=== PATIENT | male | born 1945 | race Caucasian/White ===

== ENCOUNTER 2024-03-31 15:04 | Inpatient (IN) ==
--- NOTE | 2024-03-31 10:38 | History & Physical Report ---
Date of Service March 31, 2024 Assessment & Plan (1) Exertional dyspnea: Plan: Progressive limiting dyspnea leading to an outpatient stress test. Patient had hypotensive response shortly after starting the test and echo with concern for LV dilation and septal dyskinesis Admitted to PCU. Pending cardiac catheterization today Patient has not had dyspnea or adrenal symptoms at rest. He is chest pain- free breathing normally and feels well at time of bedside assessment precath Aspirin daily continued. Further antiplatelet/beta-sumit recommendations pending catheterization evaluation Baseline EKG, CBC, CMP, coags, troponin pending - Last echo 01/2024: Normal LV size and function, no regional abnormalities. EF 60%. Mild LVH. Grade 1 diastolic dysfunction of the left ventricle. Moderately dilated RV with normal systolic function. Moderately dilated RV. 4.1 cm ascending aortic dilation index 1.8. Mild to moderate posterior and posterior lateral pericardial effusion without tamponade. Mild MR. Trace to mild TR. -Catheterization did not show significant culprit ischemic disease, L to moderate nonobstructive coronary disease was noted. On ultrasound? Some enhancement of the pericardium raising concern for possible calcific pericar ditis/restrictive pericarditis. CT shows a mild to moderate effusion did not appear amenable to diagnostic tap on initial evaluation CRP is not elevated, and has no pain suggestive of acute pericarditis. Cardiology following, appreciate recommendations (2) Hypertension: Plan: Continue lisinopril, CCB. Visional recommendations pending cath evaluation (3) Hyperlipidemia: Plan: Atorvastatin continued. Patient is on 20 mg at baseline. Last lipid profile 08/2023: LDL 27, low, HDL 27, low, cholesterol 109, triglycerides 276. Fasting repeat screen scheduled for the morning. 20 mg atorvastatin continued, dose increase of atorvastatin to 40-80 mg deferred pending repeat lipid profile and due to significantly suppressed LDL in the past (4) History of bilateral knee replacement: Plan: Noted (5) Former tobacco use: Plan: No recent use, no patch required (6) Pericardial effusion: Plan DVT prophylaxis: Lovenox CODE STATUS: Full code Diet: N.p.o. 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. Discussed with [facility] cardiology Dr. Stroudt by phone, patient was brought in for a stress test for 8 months of lower extremity edema and exertional dyspnea. He had only been able to walk about 300 feet before having limiting dyspnea, although no chest pain/chest pressure. Was originally going to order a DSE however patient that he could tolerate a treadmill stress test which was performed as outpatient. This was aborted after near collapse early on in the test, echo showed a dilated LV and dyskinetic septum and patient had a hypotensive response which after a small amount of fluid improved over time and patient is 155/77 at time of hospitalist admitting assessment. Due to progressive limiting dyspnea, hypotensive response and findings on echo he was recommended for cardiac catheterization Kendall is seen at the bedside precath. He reports that at time of hospitalist assessment he is chest pain-free and has no shortness of breath, difficulty breathing, lightheadedness, dizziness. He endorses that over the last year he has had a gradually progressive limiting exertional dyspnea which occurs after less and less ambulation and can now only walk a couple of 100 feet before having to stop due to severe dyspnea. He reports he has not noticed any chest pain or chest pressure associated with this. He thinks he may have had some type of heart attack in the past but has never had a cath and has never had stents. He denies any past history of heart failure. He denies a history of kidney disease, diabetes. Does have elevated cholesterol for which he takes atorvastatin and hypertension for which she takes lisinopril. He takes his daily medications in the evening and last took these last night. He is not short of breath at rest, and has not noticed any orthopnea. He has noticed some swelling around his ankles over the past year. He is a former smoker no use in many years. Infrequent once or twice a month beer use, no daily/regular alcohol use. No recreational drug use. No known drug allergies. Full code. Allergies Allergy/AdvReac Type Severity Reaction Status Date / Time Iodinated Contrast Media Allergy Hives Verified 03/31/24 14:48 Home Medications Medication Instructions Recorded Confirmed Type ascorbic acid (vitamin C) 1 cap PO DAILY 03/31/24 03/31/24 History aspirin 81 mg capsule,delayed 81 mg PO DAILY 03/31/24 03/31/24 History release atorvastatin 20 mg tablet 20 mg PO DAILY 09/26/24 09/26/24 History lisinopril 30 mg tablet 30 mg PO DAILY 03/31/24 03/31/24 History nifedipine 60 mg tablet,extended 60 mg PO DAILY 03/31/24 03/31/24 History release 24 hr omega-3 fatty acids 1,000 mg PO DAILY 03/31/24 03/31/24 History Past Med/Surg History Problem List (Updated 03/31/24 @ 20:46 by Woody Nino MD) Pericardial effusion Hyperlipidemia Hypertension Exertional dyspnea Medical History Former tobacco use Surgical History (Updated 03/31/24 @ 10:37 by Woody Nino MD) History of bilateral knee replacement Social History Smoking Status: Never smoker Hx Alcohol Use: No Hx Substance Use: No Preferred Language: Lithuanian Communication Ability: Effective Leg Assembler Required: No Beliefs That Will Affect Care: None Current Living Situation: Alone Feels Safe at Home: Yes Assistive Devices: None Physical Exam Physical Exam: General: A&Ox3. NAD. Cooperative. HEENT: Atraumatic, normocephalic. Vision and hearing grossly intact. Pupils equal and reactive to light Pulm: CTAB A&P. -wheezes, -rales, -rhonchi. Symmetrical chest rise. No increased work of breathing. No respiratory distress. Cardiac: RRR, -mrg. Radial pulses intact and symmetrical. Trace JVD about 1 cm above the clavicle without significant HJR Abdominal: Nontender, nondistended, soft. BS present. Extremities: 1+ ankle edema bilaterally. Sensation soft touch intact in hands and feet. Moves all extremities equally Code Status & VTE Plan VTE Prophylaxis Plan VTE Prophylaxis will be ordered: Yes PG Care Time/CCT Total # of Minutes Spent Total Time Spent with Patient: Total time spent is greater than 50% in coordination of care (as documented) at patient's floor/unit and/or counseling patient: Coding Level of Care Code 12222 INT INP/OBS CARE 3/75MIN Diagnoses Exertional dyspnea R06.09 Hypertension I10 Hyperlipidemia E78.5 History of bilateral knee replacement Z96.653 Former tobacco use Z87.891 Pericardial effusion I31.39
[2024-03-31 11:41] LABS: Basophils # (auto) 0.09 K/uL (0.00-0.20); Basophils % (auto) 1.3 %; Eosinophils # (auto) 0.17 K/uL (0.00-0.50); Eosinophils % (auto) 2.4 %; Hematocrit (blood only) 42.3 % (42.0-52.0); Hemoglobin 14.7 g/dl (14.0-18.0); Immature Granulocytes # (auto) 0.02 K/uL (0.01-0.20); Immature Granulocytes % (auto) 0.3 %; Lymphocytes % (auto) 45.6 %; Mean Corpuscular Hemoglobin 30.8 pg (25.0-34.0); Mean Corpuscular Hgb Conc 34.8 g/dL (32.0-36.0); Mean Corpuscular Volume 88.7 fL (80.0-100.0); Mean Platelet Volume 9.8 fL (9.4-12.4); Monocytes # (auto) 0.59 K/uL (0.11-0.59); Monocytes % (auto) 8.4 %; Neutrophils # (auto) 2.94 K/uL (1.40-6.50); Platelet Count 217 K/uL (130-400); RDW Coefficient of Variation 12.7 % (11.5-14.5); RDW Standard Deviation 41.6 fL (36.4-46.3); Red Blood Count 4.77 M/uL (4.70-6.10); White Blood Count 7.01 K/ul (4.8-10.8)
[2024-03-31 11:52] LABS: Alanine Aminotransferase 22 U/L (7-52); Albumin Globulin Ratio 1.1 (0.9-2); Albumin Level 4.3 gm/dl (3.4-5.0); Alkaline Phosphatase 113 U/L (34-104); Anion Gap 9 (3-11); Aspartate Aminotransferase 27 U/L (13-39); BUN Creatinine Ratio 20.5 (10-20); Bilirubin,Total 0.5 mg/dl (0.2-1.0); Blood Urea Nitrogen 16 mg/dl (6-23); Calcium 9.3 mg/dl (8.6-10.3); Carbon Dioxide 24 mmol/L (21-32); Chloride 105 mmol/L (98-107); Creatinine Clr Calc Pharmacy 87.5 ml/min; Est GFR (African American) 98.8 ml/min; Est GFR (Non-African American) 85.3 ml/min; Globulin 3.9 gm/dl (2.5-4.0); Glucose 108 mg/dl (70-99(Fasting)); Potassium 3.8 mmol/L (3.5-5.1); Sodium 138 mmol/L (136-145); Total Protein 8.2 gm/dl (6.0-8.3)
[2024-03-31 11:57] LABS: Troponin I High Sensitivity 2.6 pg/ml (0-20)
--- NOTE | 2024-03-31 12:05 | Pre Anesthesia Assessment ---
Date of Service March 31, 2024 Pre Sedation Assessment Vital Signs Pulse Resp BP Pulse Ox O2 Del Method 03/31/24 10:31 82 18 155/77 H 95 Room Air Cardiovascular + regular rate Respiratory + respiratory effort normal Pre-Sedation Airway Assessment Smoking Status: Former smoker Hx Sleep Apnea: No Hx Difficult Intubation: No Short, Thick Neck: No Thyromental Distance: > or= 3.5 Finger Breadths Oral Cavity: + WNL Mallampati Class: III ASA: ASA3 NPO Status Date of Last Intake of Fluids: 03/31/24 Time of Last Intake of Fluids: 08:00 Date of Last Intake of Solid Food: 03/30/24 Time of Last Intake of Solid Foods: 19:00 Procedure Planning Contraindications for Sedation: none Current Medications Reviewed: Yes Notes The planned sedation has been discussed with the patient. Informed Consent was obtained. I have identified the patient, determined the appropriateness of sedation and have assessed the patient immediately prior to the procedure. All medicine(s) and interventions are by my order.
[2024-03-31 12:07] LABS: Partial Thromboplastin Ratio 1.1; Partial Thromboplastin Time 29 Seconds (21-31); Prothrombin Time 11.3 Seconds (9.0-12.0); Thyroid Stimulating Hormone 4.173 uIu/ml (0.300-4.500)
--- NOTE | 2024-03-31 14:02 | Post Anesthesia Assessment ---
Date of Service March 31, 2024 Post Sedation Assessment Vital Signs Pulse Resp BP Pulse Ox O2 Del Method 03/31/24 10:31 82 18 155/77 H 95 Room Air Recovery Score Activity: Moves 4 extremities Respiration: Deep Breath/Cough Circulation: +/-20% PreAnes Value Consciousness: Fully Awake Oxygen Saturation: O2 needed for >90% Discharge Sedation Level of Care: Fast Track Phase II Post Sedation Plan On clinical assessment, the patient appears to have tolerated the sedation without complications. Patient is recovering as anticipated. Patient will continue to be monitored by nursing and may be discharged when se dation discharge criteria are met per below protocol. Upon Completions of procedure up to 15 minutes continue every 5 minute vital signs and the P.A.R. score; then discharge to a Phase I or Fast Track to Phase II per the following guidelines: * Discharge Patient to appropriate Phase II area if PAR is 8 or greater or return to pre- procedure baseline. The post - procedure orders will be as directed. * If PAR score is less than 8 or not return to pre-procedure baseline then patient will follow Phase I monitoring till PAR is reached for Phase II. The Phase I may be done in procedure room or may call to secure a Phase I area. * If naloxone or flumazenil are used for reversal, hold in Phase I for continued monitoring from when last reversal dose was given for a minimum of 60 minutes or longer pending the nurse and/or physician discretion of patient condition before discharge to Phase II. Please call the Sedation Physician to re-evaluate and complete post-note for discharge to Phase II area. Do NOT discharge from procedure sedation or Phase 1 until post- sedation evaluation note is complete by procedure /sedation MD Sedation Discharge Instructions to be given to the patient at discharge to home.
[2024-03-31 14:04] LABS: iSTAT Arterial Blood Gas HCO3 22 meg/L (19-24); iSTAT Arterial Blood Gas pCO2 36 mmHg (35-46); iSTAT Arterial Blood Gas pO2 71 mmHg (80-95); iSTAT Carbon Dioxide 23 mmol/L (24-31); iSTAT Hematocrit 43 % (42-52); iSTAT Hemoglobin 14.6 g/dl (14.0-18.0); iSTAT Potassium 3.8 mmol/L (3.3-5.0); iSTAT Sodium 142 mmol/L (135-144)
--- NOTE | 2024-03-31 14:10 | Cardiac Catheterization ---
[facility] Data: Chief Of Party Cardiac Status Clinical evaluation leading to the procedure CAD Presenation: Positive Stress Test Diagnostic Physicians Name: Marke Alaniz MD Closure Device Recommendations: Medical Therapy and/or Counseling Cardiac Cath Procedure Full Procedure Date March 31, 2024 Pre-Procedure Diagnosis Pre-Procedure Diagnosis: Positive Stress Test AUC Score AUC Score: 7 Post-Procedure Diagnosis Post-Procedure Diagnosis: Moderate CAD Procedure(s) Performed Procedure(s) Performed: Coronary Angiography, Left Heart Cath, Right Heart Cath, Ultrasound Guided Vascular Access and IVUS Emergency Doctor Marek Alaniz MD Roll Weigher(s) Brant Estimated Blood Loss Estimated Blood Loss: 15 Medication(s) Medication(s): Fentanyl, Heparin, Lidocaine 1%, Nicardipine, Nitroglycerin and Versed Summary of Findings Indication: Abnormal stress test Access: 6 Fr right radial artery, 6 Fr right common femoral vein under ultrasound guidance Catheters: [place], diagnostic JL 3.5, pigtail, Egan Findings: LM -large caliber vessel, no significant disease LAD -large caliber, mild proximal disease up to 30% across takeoff of large D1. Remainder of LAD without significant disease and extends to apex. Large D1 without significant disease. Circumflex -large caliber vessel, no significant disease RCA -dominant, large caliber vessel, proximal luminal irregularities but no other significant disease. RA 7 RV 26/10 PA 29/16 (22) PAWP 13 LV 13 PaSat 69% AoSat 94% Herman CO/CI 6.4/3.0 IVUS of proximal LAD Left main cannulated with EBU 3.5 guide BMW wire placed into distal LAD Roman IVUS catheter placed into mid LAD. Pullback revealed focal area of circumferential calcified plaque just after takeoff of diagonal up to 40%. No significant ostial LAD or left main disease. Arterial Closure: TR band, CFV Mynx Summary: 1. Mild to moderate nonobstructive coronary artery disease -40% proximal to mid LAD disease by IVUS 2. Normal left-sided filling pressures. 3. Borderline right-sided filling pressures. 4. Normal pulmonary artery pressures. 5. Preserved cardiac output. Recommendations: No acute or high risk CAD to explain patient's recent symptoms and abnormal stress test. Continued ASCVD risk factor modification per Dr. Melendez Hemodynamics Rest Ao:: 121/79/119 Final Ao: 105/58/79 LV: 124/10 Recommendations Recommendations: Medical Therapy and/or Counseling Specimens Specimens: None Radiation Exposure (mGy) 2772 Contrast (mls) 116 Anesthesia Moderate 2243-1088 Procedural Complication(s) None Disposition PCU I attest to the content of the Intraoperative Record and any orders documented therein. Any exceptions are noted below. [facility] Card Cath Procedure Codes Cardiac Catheterization Procedure 1: Cardiovascular Cath Procedures: 41058 Coronaries & LHC (+/-LV) & RHC Therapeutic Services & Ancillary Procedure 1: Cardiovascular Tx and Anc Procedures: 23665 IV Ultrasound (Coronary or Graft) Procedure 2: Cardiovascular Tx and Anc Procedures: 27981 Ultrasonic Guidance Vascular Access Moderate Sedation Procedure 1: Sedation/Anesthesia: 36735 Mod Sedation by the same physician;Init15 Min Child Age 5 & Up Procedure 2: Sedation/Anesthesia: 91695 Mod Sedation by the same physician; Ea [id number] Minutes PG Care Time/CCT Total # of Minutes Spent Total Time Spent with Patient: Total time spent is greater than 50% in coordination of care (as documented) at patient's floor/unit and/or counseling patient:
[2024-03-31] MEDS ORDERED: ACETAMINOPHEN 325 MG TAB PO PRN (15:26)
[2024-03-31] MEDS ORDERED: NITROGLYCERIN SL 0.4 MG/TAB TAB SL PRN (15:26)
[2024-03-31 15:52] LABS: iSTAT Arterial Blood Gas HCO3 24 meg/L (19-24); iSTAT Arterial Blood Gas pCO2 41 mmHg (35-46); iSTAT Arterial Blood Gas pH 7.37 (7.35-7.45); iSTAT Arterial Blood Gas pO2 37 mmHg (80-95); iSTAT Carbon Dioxide 25 mmol/L (24-31); iSTAT Hematocrit 44 % (42-52); iSTAT Potassium 3.8 mmol/L (3.3-5.0); iSTAT Sodium 143 mmol/L (135-144)
[2024-03-31 16:11] LABS: C Reactive Protein < 0.50 mg/dl (0-0.5)
[2024-03-31] MEDS: LIDOCAINE 1% LOCAL 20 ML VIAL ONE (17:34)
[2024-03-31] MEDS: diphenhydrAMINE 50 MG/ML VIAL ONE (17:34)
--- NOTE | 2024-03-31 19:24 | CT Scan Report ---
Exam(s): CT CHEST Without Contrast EXAM: CT Chest Without Intravenous Contrast CLINICAL HISTORY: Reason for exam: dyspnea, ?pericardial calcificaiton. TECHNIQUE: Axial computed tomography images of the chest without intravenous contrast. CTDI is 23.01 mGy and DLP is 742.89 mGy-cm. Automated exposure control was utilized for the study. A dose lowering technique was utilized adhering to the principles of ALARA. COMPARISON: No relevant prior studies available. FINDINGS: Lungs: Discoid atelectasis seen in the lung bases. No mass. Pleural space: Unremarkable. No pneumothorax. No significant effusion. Heart: Mild to moderate pericardial effusion. No pericardial calcification. Moderate coronary vascular calcifications are seen. No cardiomegaly. Bones/joints: Unremarkable. No acute fracture. No dislocation. Soft tissues: Unremarkable. Vasculature: Ascending aorta is ptotic, measuring 1.3 cm in diameter. Lymph nodes: Unremarkable. No enlarged lymph nodes. IMPRESSION: 1. Mild to moderate pericardial effusion. 2. Ectatic ascending aorta. Electronically signed by: Silvano Vera MD 03/31/24 19:23 PM
[2024-03-31] MEDS: ATORVASTATIN 20 MG TAB PO SCH (20:31)
[2024-03-31] MEDS: NIFEdipine EXTENDED REL 30 MG TABCR PO SCH (20:31)
[2024-03-31] MEDS: OMEGA-3 (PURIFIED FISH OIL) 1 GM CAP PO SCH (20:31)
[2024-03-31] MEDS: lisinopril 10 MG TAB PO SCH (20:31)
[2024-03-31 22:34] VITALS: RESP 18
[2024-04-01 03:23] VITALS: O2SAT 92
[2024-04-01 06:24] LABS: Basophils # (auto) 0.08 K/uL (0.00-0.20); Basophils % (auto) 0.9 %; Eosinophils # (auto) 0.26 K/uL (0.00-0.50); Eosinophils % (auto) 2.9 %; Hematocrit (blood only) 40.3 % (42.0-52.0); Immature Granulocytes # (auto) 0.03 K/uL (0.01-0.20); Immature Granulocytes % (auto) 0.3 %; Lymphocytes # (auto) 3.71 K/uL (1.20-3.40); Lymphocytes % (auto) 41.6 %; Mean Corpuscular Hemoglobin 30.8 pg (25.0-34.0); Mean Corpuscular Hgb Conc 34.7 g/dL (32.0-36.0); Mean Corpuscular Volume 88.8 fL (80.0-100.0); Mean Platelet Volume 9.9 fL (9.4-12.4); Monocytes # (auto) 0.91 K/uL (0.11-0.59); Monocytes % (auto) 10.2 %; Neutrophils # (auto) 3.93 K/uL (1.40-6.50); Neutrophils % (auto) 44.1 %; Platelet Count 214 K/uL (130-400); RDW Coefficient of Variation 12.7 % (11.5-14.5); RDW Standard Deviation 41.1 fL (36.4-46.3); Red Blood Count 4.54 M/uL (4.70-6.10); White Blood Count 8.92 K/ul (4.8-10.8)
[2024-04-01 06:41] LABS: BUN Creatinine Ratio 17.9 (10-20); Chol HDL Ratio 3.4 (0-5); Creatinine Clr Calc Pharmacy 81.4 ml/min; Est GFR (African American) 95.8 ml/min; Est GFR (Non-African American) 82.7 ml/min; Potassium 3.7 mmol/L (3.5-5.1)
[2024-04-01 07:21] VITALS: BP 124/64; TEMP 98.2
--- NOTE | 2024-04-01 08:55 | Cardiology Progress Note ---
Date of Service April 01, 2024 Assessment & Plan (1) Exertional dyspnea: (2) Pericardial effusion: Plan Mr. Conner's catheterization did not demonstrate obstructive CAD or abnormal pressures. He has a 40% lesion in his LAD. He is appropriately on aspirin and statin. He does note some edema in his lower extremities at times but his bnp was normal and cath pressures were normal ruling out heart failure as a source of his dyspnea and swelling. He does have a moderate pericardial effusion found in January, no evidence of tamponade and not amenable to pericardiocentesis. He notes a mild cold a few weeks ago but otherwise has not had any significant viral infections. His CT did not demonstrate pulmonary disease. I did ask nursing to walk him in the halls with a pulse ox and did not have any desaturation with this. His pulse ox runs on the low side of normal. At this point, no obvious cardiac source of his dyspnea has been discovered. A referral to pulmonology on an outpatient basis could be considered. Cardiology will sign off, please let us know if you have any further questions. Admission and Anticipated Discharge Date Admission Date: March 31, 2024 Subjective Mr. Conner feels well this morning, eating breakfast at the time of my visit. He denies any shortness of breath or chest pain at rest. His dyspnea has been ongoing for about 3 months. Heart rate on the monitor has been largely SR although he had an episode around bedtime of sinus tachycardia with rates in the 130s. Review of Systems Review of Systems: All systems reviewed & are unremarkable except as noted in HPI & below Physical Exam Constitutional: WD/WN, vitals as above Respiratory: normal respiratory effort, lungs clear to auscultation Cardiovascular: Rate/Rhythm: regular rate and regular rhythm Heart Sounds: + murmur (2/6 rusb systolic) Extremities: no edema Skin: no rashes, warm and dry Neurologic: moves all extremities and awake Psychiatric: A+Ox3, euthymic affect Results & Data Vital Signs (Past 12 Hours) Vital Signs Temp Pulse Pulse Resp BP Pulse Ox O2 Del Method 04/01/24 07:25 84 04/01/24 07:20 36.8 C 70 18 124/64 92 Room Air 04/01/24 03:22 37.0 C 73 18 105/63 92 Room Air 03/31/24 23:11 Room Air 09/26/24 22:33 36.9 C 82 18 136/74 94 Room Air 03/31/24 21:51 82
[2024-04-01] MEDS: ASPIRIN 81 MG ECTAB PO SCH (08:56)
[2024-04-01] MEDS: ENOXAPARIN INJ 40 MG/0.4 ML SYR SQ SCH (08:57)
--- NOTE | 2024-04-01 10:55 | Discharge Summary ---
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 Discussed with [facility] cardiology Dr. Charles by phone, patient was brought in for a stress test for 8 months of lower extremity edema and exertional dyspnea. He had only been able to walk about 300 feet before having limiting dyspnea, although no chest pain/chest pressure. Was originally going to order a DSE however patient that he could tolerate a treadmill stress test which was performed as outpatient. This was aborted after near collapse early on in the test, echo showed a dilated LV and dyskinetic septum and patient had a hypotensive response which after a small amount of fluid improved over time and patient is 155/77 at time of hospitalist admitting assessment. Due to progressive limiting dyspnea, hypotensive response and findings on echo he was recommended for cardiac catheterization Kendall is seen at the bedside precath. He reports that at time of hospitalist assessment he is chest pain-free and has no shortness of breath, difficulty breathing, lightheadedness, dizziness. He endorses that over the last year he has had a gradually progressive limiting exertional dyspnea which occurs after less and less ambulation and can now only walk a couple of 100 feet before having to stop due to severe dyspnea. He reports he has not noticed any chest pain or chest pressure associated with this. He thinks he may have had some type of heart attack in the past but has never had a cath and has never had stents. He denies any past history of heart failure. He denies a history of kidney disease, diabetes. Does have elevated cholesterol for which he takes atorvastatin and hypertension for which she takes lisinopril. He takes his daily medications in the evening and last took these last night. He is not short of breath at rest, and has not noticed any orthopnea. He has noticed some swelling around his ankles over the past year. He is a former smoker no use in many years. Infrequent once or twice a month beer use, no daily/regular alcohol use. No recreational drug use. No known drug allergies. Full code. Admission Exam (Per Admitting) Constitutional The patient is awake, alert and oriented 3, well developed and well nourished, normocephalic and atraumatic, lying in bed and in no acute distress. HEENT--PERRL, EOMI, mucous membranes and oropharynx mildly dry Neck--supple. No JVD. No bruits. Thyroid normal, trachea midline, no adenopathy. Heart--normal S1 and S2. No murmurs, rubs or gallops. Lungs--clear bilaterally, no respiratory distress, no accessory muscle use. Abdomen--normal bowel sounds and soft. Extremities--no cyanosis or clubbing. No edema. Dermatologic--normal skin turgor, normal color, no abnormal lymph nodes, no rash. Neurologic--cranial nerves II through XII grossly intact. Rheumatologic--normal range of motion. Psychiatric--normal affect. Discharge Data Procedures Performed Operation Date: 03/31/24 10:30 Actual Procedures p Cath, Right and Left Heart - Marek Alaniz MD s Cineradiography w/Routine Exam - Marek Alaniz MD Hospital Course (1) Exertional dyspnea: Progressive limiting dyspnea leading to an outpatient stress test. Patient had hypotensive response shortly after starting the test and echo with concern for LV dilation and septal dyskinesis Admitted to PCU. Pending cardiac catheterization today Patient has not had dyspnea or adrenal symptoms at rest. He is chest pain- free breathing normally and feels well at time of bedside assessment precath Aspirin daily continued. Further antiplatelet/beta-sumit recommendations pending catheterization evaluation Baseline EKG, CBC, CMP, coags, troponin pending - Last echo 01/2024: Normal LV size and function, no regional abnormalities. EF 60%. Mild LVH. Grade 1 diastolic dysfunction of the left ventricle. Moderately dilated RV with normal systolic function. Moderately dilated RV. 4.1 cm ascending aortic dilation index 1.8. Mild to moderate posterior and posterior lateral pericardial effusion without tamponade. Mild MR. Trace to mild TR. -Catheterization did not show significant culprit ischemic disease, L to moderate nonobstructive coronary disease was noted. On ultrasound? Some enhancement of the pericardium raising concern for possible calcific pericarditis/restrictive pericarditis. CT shows a mild to moderate effusion did not appear amenable to diagnostic tap on initial evaluation CRP is not elevated, and has no pain suggestive of acute pericarditis. Cardiology following, appreciate recommendations -Cardiology determined patient is on appropriate medications -Will have patient follow up with Pulmonology for outpatient pulmonary function test (2) Hypertension: Continue lisinopril, CCB. Visional recommendations pending cath evaluation (3) Hyperlipidemia: Atorvastatin continued. Patient is on 20 mg at baseline. Last lipid profile 08/2023: LDL 27, low, HDL 27, low, cholesterol 109, triglycerides 276. Fasting repeat screen scheduled for the morning. 20 mg atorvastatin continued, dose increase of atorvastatin to 40-80 mg deferred pending repeat lipid profile and due to significantly suppressed LDL in the past (4) History of bilateral knee replacement: Noted (5) Former tobacco use: No recent use, no patch required (6) Pericardial effusion: Plan DVT prophylaxis: Lovenox CODE STATUS: Full code Diet: N.p.o. pending cardiac cath, then may progress to heart healthy Disposition: PCU Coding Level of Care Code 39638 INP/OBS DISCH >30 MIN Diagnoses Exertional dyspnea R06.09 Hypertension I10 Hyperlipidemia E78.5 History of bilateral knee replacement Z96.653 Former tobacco use Z87.891 Pericardial effusion I31.39 Time Spent (min) 35
[2024-04-01 11:09] VITALS: PULSE 70
--- NOTE | 2024-04-01 23:05 | Electrocardiogram Report ---
Test Reason : Blood Pressure : */* mmHG Vent. Rate : 72 BPM Atrial Rate : 72 BPM P-R Int : 176 ms QRS Dur : 96 ms QT Int : 440 ms P-R-T Axes : 65 21 76 degrees QTcB Int : 481 ms Normal sinus rhythm Low voltage QRS Cannot rule out Anterior infarct , age undetermined Prolonged QT Abnormal ECG No previous ECGs available Confirmed by Zaire Sloan ([id number]) on 04/01/2024 11:05:08 PM Referred By: Mandy Melendez Confirmed By: Zaire Sloan
--- NOTE | 2024-04-02 13:07 | Coding Query ---
CODING QUERY To promote full compliance with coding requirements relating to patient care, provider participation is requested in all cases of power plant supervisor uncertainty. Please assist us with the question(s) below: The medical record reflects the following clinical evidence: Clinical Indicators: CT chest read to include: "Mild to moderate pericardial effusion" in the setting of progressive exertional dyspnea and bilateral heart catheterization summary including "No acute or high risk CAD to explain patient's recent symptoms and abnormal stress test" Insidious onset over 8 months. Risk Factor(s): ?infectious, inflammatory, idiopathic. Treatment: Telemetry, cardiac catheterization, CT chest Post-Procedure Diagnosis: Moderate CAD Physician's Response(s): __x_Exertional dyspnea due to pericardial effusion ___Moderate CAD ___Other explanation of clinical findings ___Unable to determine (no explanation for clinical findings) Thank you Luisa SALAS
== END 2024-04-01 13:19 | disposition home or self-care (01) | DRG 287 ==
LOC: CC 15:04 → 4W 15:07 → SUATTDRO 15:07